=== PATIENT | male | born 1980 | race African-American/Black ===

== ENCOUNTER 2021-04-24 14:56 | Emergency (ER) | payer OTHER ==
[~2021-04-24] VITALS: Ht 193 cm; Wt 101.2 kg
[~2021-04-24 14:56] MED LIST: CLEOCIN HCL150 M1 PO; MESTINON60 MG PO; METFORMIN HCL500 M3 PO; NAPROSYN500 MG PO; NORCO 5-325 TA1 EAC1 PO; RAYOS5 MG PO
[2021-04-24 16:23] LABS: ABSOLUTE NEUTROPHILS 5.4 thou/uL (1.4-8.2); BASOPHILS 0.8 % (0.0-2.0); EOSINOPHILS 0.2 % (0.0-3.0); HEMATOCRIT 43.6 % (42.0-52.0); HEMOGLOBIN 14.1 gm/dL (14.0-18.0); LYMPHOCYTES 9.5 % (24.0-44.0); MCH 27.6 pg (26.0-34.0); MCHC 32.2 g/dL (28.0-37.0); MCV 85.6 fL (80.0-100.0); MONOCYTES 2.9 % (1.0-8.0); PLATELET COUNT 325 thou/uL (150-400); POLYS 86.6 % (36.0-66.0); RDW 15.3 % (10.5-14.5); WBC 6.2 thou/uL (4.0-11.0)
--- NOTE | 2021-04-24 16:33 | EKG ---
[place] [address] [facility] [place] [address] ELECTROCARDIOGRAM REPORT Name: CORI KOLB GET FRANCISCO Room #: REG [facility].#: [id number] Admission: 04/24/21 Attend Phys: Discharge: Date of : 76 Report #: [id number] [facility] ED Test Date: 2021-04-24 Test Time: 16:03:49 Pat Name: CORI KOLB Department: Room: Gender: M Nursery Hand: PEGGY : 1980 Requested By: Kris Calderon Order Number: [id number] MD: Dario Curtis Measurements Intervals [place] Rate: 88 P: 16 DC: 163 QRS: 74 QRSD: 156 T: -11 QT: 440 QTc: 533 Interpretive Statements Sinus rhythm Probable left atrial enlargement Left ventricular hypertrophy Anterior Q waves, possibly due to LVH Prolonged QT interval No previous ECG available for comparison Electronically Signed On 04-24-2021 16:33:13 CDT by Dario Curtis [email or web address] <ELECTRONICALLY SIGNED> By: Dario Curtis MD, [facility] 04/24/21 1633 1603 1603 Dario Curtis MD, FACC /EPI
[2021-04-24 17:22] LABS: CALCIUM 8.7 mg/dL (8.5-10.1); CREATININE 0.9 mg/dL (0.7-1.3); POTASSIUM 4.3 mmol/L (3.5-5.1)
[2021-04-24 17:29] LABS: ALBUMIN 3.3 g/dL (3.4-5.0); TOTAL BILIRUBIN 0.4 mg/dL (0.2-1.0)
[2021-04-24] MEDS ORDERED: NEURONTIN 300M300 M2 PO (17:43)
[2021-04-24] MEDS ORDERED: LYRICA150 MG PO ×2 (17:43→18:07)
[2021-04-24 18:00] VITALS: BP 158/105
== END 2021-04-24 18:00 | disposition home or self-care (01) ==
LOC: ER 14:56
PROVIDERS: Emergency Medicine
DX: M79.10 Myalgia, unspecified site (principal); Z20.822 Contact with and (suspected) exposure to COVID-19; Z79.891 Long term (current) use of opiate analgesic; Z79.84 Long term (current) use of oral hypoglycemic drugs; Z79.899 Other long term (current) drug therapy; Z88.0 Allergy status to penicillin

== ENCOUNTER 2021-07-01 13:53 | Inpatient (IN) | payer OTHER ==
[~2021-07-01] VITALS: Ht 193 cm; Wt 110.2 kg
[~2021-07-01 13:53] MED LIST changes: +LYRICA150 MG PO; +NEURONTIN 300M300 M2 PO
[2021-07-01 13:54] VITALS: BP 107/54
[2021-07-01 14:14] LABS: ABSOLUTE NEUTROPHILS 8.7 thou/uL (1.4-8.2); BASOPHILS 0.8 % (0.0-2.0); EOSINOPHILS 1.6 % (0.0-3.0); HEMATOCRIT 31.3 % (42.0-52.0); HEMOGLOBIN 10.3 gm/dL (14.0-18.0); MCH 29.3 pg (26.0-34.0); MCHC 32.9 g/dL (28.0-37.0); MONOCYTES 5.6 % (1.0-8.0); PLATELET COUNT 217 thou/uL (150-400); RBC 3.51 mil/uL (4.50-6.00); RDW 15.7 % (10.5-14.5); WBC 10.4 thou/uL (4.0-11.0)
[2021-07-01 14:26] LABS: CREATININE 2.3 mg/dL (0.7-1.3); POTASSIUM 4.9 mmol/L (3.5-5.1)
[2021-07-01 14:37] LABS: ALBUMIN 2.4 g/dL (3.4-5.0); TOTAL BILIRUBIN 0.6 mg/dL (0.2-1.0); TOTAL PROTEIN 5.8 g/dL (6.4-8.2)
[2021-07-01] MEDS ORDERED: COLCHICINE0.6 M1 PO (18:15)
[2021-07-01] MEDS ORDERED: ROXICODONE5 M2 PO (18:16)
[2021-07-01] MEDS ORDERED: IBUPROFEN 800800 M1 PO (18:17)
[2021-07-01] MEDS ORDERED: METFORMIN HCL500 M3 PO (18:17)
[2021-07-01] MEDS ORDERED: JANUVIA100 MG PO (18:17)
[2021-07-01] MEDS ORDERED: LISINOPRIL2.5 MG PO (18:18)
[2021-07-01] MEDS ORDERED: AMBIEN 5 MG TABL5 M1 PO (18:18)
[2021-07-01] MEDS ORDERED: DIGOX125 MCG PO (18:18)
[2021-07-01] MEDS ORDERED: SILDENAFIL CIT100 MG PO (18:19)
[2021-07-01] MEDS ORDERED: NEURONTIN 300M300 M2 PO ×2 (18:19→21:47)
[2021-07-01] MEDS ORDERED: PREDNISONE 20 M20 MG PO (18:19)
[2021-07-01] MEDS ORDERED: LYRICA150 MG PO (18:20)
[2021-07-01] MEDS ORDERED: CIALIS10 MG PO (18:20)
--- NOTE | 2021-07-01 18:20 | NUR ---
A #5F TRIPLE LUMEN PICC WAS PLACED PER HOSPITAL POLICY AFTER A BEDSIDE TIMEOUT WAS COMPLETED. THE LINE WAS TRIMMED TO 45CM AND ADVANCED WITHOUT DIFFICULTY. CONFIRMED AT 4CM EXTERNAL AND RELEASED FOR USE
[2021-07-01] MEDS ORDERED: INTERMEZZO3.5 MG PO (18:21)
[2021-07-01] MEDS ORDERED: JARDIANCE25 MG PO (19:15)
[2021-07-01] MEDS ORDERED: ROXICODONE5 MG PO (19:17)
[2021-07-01] MEDS ORDERED: TIZANIDINE HCL4 M2 PO (19:18)
[2021-07-01] MEDS ORDERED: TOPROL XL25 MG PO (19:23)
[2021-07-01] MEDS ORDERED: PYRIDOSTIGMINE180 MG PO (19:27)
[2021-07-01] MEDS ORDERED: ASA81BEC PO (19:27)
[2021-07-01] MEDS ORDERED: AMITRIPTYLINE H25 M3 PO (19:28)
--- NOTE | 2021-07-01 21:20 | NUR ---
I CONTACTED STEVENSON NIETO BREAD SLICER MACHINE RE: PATIENT REQUEST FOR PAIN MEDS. DR HADLEY HAD CALLED ME PREVIOUSLY TO UPDATE MED LIST - LIST IS NOW CURRENT.
[2021-07-01] MEDS ORDERED: LYRICA300 MG PO (21:57)
[2021-07-01 22:14] VITALS: BP 133/98
[2021-07-02 05:52] VITALS: BP 120/52
[2021-07-02 06:01] LABS: HEMATOCRIT 30.4 % (42.0-52.0); MCH 29.5 pg (26.0-34.0); MCHC 32.8 g/dL (28.0-37.0); MCV 90.1 fL (80.0-100.0); RBC 3.38 mil/uL (4.50-6.00); RDW 15.3 % (10.5-14.5); WBC 13.6 thou/uL (4.0-11.0)
[2021-07-02 06:11] LABS: CREATININE 1.3 mg/dL (0.7-1.3); POTASSIUM 3.6 mmol/L (3.5-5.1)
--- NOTE | 2021-07-02 09:50 | 2DMMODE ---
[facility] [place] [address] 2 D/M-MODE ECHOCARDIOGRAM Name: CORI KOLB Room #: 170-12 ADM IN M.R.#: [id number] Admission: 07/01/21 Attend Phys: Jonas Davila MD Discharge: Date of : 76 Report #: [id number] THIS REPORT FOR: cc: Dylon Zapien Brady DO Couchonnal, Luis F. MD ~ APPROVED REPORT Study performed: 07/01/2021 16:56:29 EXAM: Comprehensive 2D, Doppler, and color-flow Echocardiogram Patient Location: ER Room #: 13 Status: stat BSA: 0.87 HR: 92 bpm Rhythm: NSR Other Information Study Quality: Adequate Risk Factors: Cardiac Risk Factors: HTN Indications Dyspnea Pericardial Effusion 2D Dimensions RVDd: 40.80 mm IVSd: 13.31 (7-11mm) LVOT Diam: 24.96 (18-24mm) LVDd: 55.99 mm PWd: 10.90 (7-11mm) LVDs: 41.45 (25-40mm) Aortic Root: 38.01 mm LV Single Plane 4CH: 42.55 % Volumes Left Atrial Volume (Systole) Single Plane 4CH: 54.61 mL Single Plane 2CH: 44.68 mL LA ESV Index: 28.00 mL/m2 Aortic Valve [facility] [address] [place] [address] 2 D/M-MODE ECHOCARDIOGRAM Name: CORI KOLB GET Room #: 170-12 ADM IN M.R.#: [id number] Admission: 07/01/21 Attend Phys: Jonas Davila MD Discharge: Date of : 76 Report #: [id number] Peak Sourav.: 1.71 m/s AO Peak Gr.: 11.65 mmHg LVOT Max P.91 mmHg AO Mean Gr.: 6.34 mmHg LVOT Mean P.07 mmHg AO V2 Mean: 1.16 m/s LVOT Max V: 1.31 m/s AO V2 VTI: 28.12 cm LVOT Mean V: 0.81 m/s RACHAEL (VTI): 3.71 cm2 LVOT V1 VTI: 21.30 cm RACHAEL Vmax: 3.77 cm2 SV (LVOT): 104.19 mL Mitral Valve MV E Max Sourav.: 0.90 m/s Pulmonary Valve PV Peak Sourav.: 1.26 m/s PV Peak Gr.: 6.33 mmHg Tricuspid Valve TR Peak Sourav.: 2.89 m/s TR Peak Gr.: 33.48 mmHg Left Ventricle Left ventricle is at the upper limits of normal. Consistent with paced rhythm Mild concentric left ventricular hypertrophy. Left ventricular systolic function is mildly decreased. LVEF is 45-50%. Right Ventricle Right ventricle is at the upper limits of normal. The right ventricular systolic function is normal. Atria Left atrium is at the upper limits of normal. Right atrium size is normal. Aortic Valve The aortic valve is normal in structure. No aortic regurgitation is present. There is no aortic valvular stenosis. Mitral Valve Normal mitral valve struction Mild MR Tricuspid Valve The tricuspid valve is normal in structure. Trace tricuspid regurgitation. Estimated PAP 35-40 mmHg. Pulmonic Valve The pulmonary valve is normal in structure. There is no pulmonic [facility] [place] [address] 2 D/M-MODE ECHOCARDIOGRAM Name: CORI KOLB [facility] Room #: 170-12 ADM IN M.R.#: [id number] Admission: 07/01/21 Attend Phys: Jonas Davila MD Discharge: Date of : 76 Report #: [id number] valvular regurgitation. Great Vessels Aortic root is mildly dilated. IVC is normal in size and collapses >50% with inspiration. Pericardium There is no pericardial effusion. Critical Notification Critical Value: No <Conclusion> Left ventricle is at the upper limits of normal. Left ventricle is at the upper limits of normal. Left ventricular systolic function is mildly decreased. LVEF is 45-50%. Consistent with paced rhythm Right ventricle is at the upper limits of normal. The right ventricular systolic function is normal. The aortic valve is normal in structure. Normal mitral valve struction Mild MR The tricuspid valve is normal in structure. Trace tricuspid regurgitation. Estimated PAP 35-40 mmHg. There is no pericardial effusion. <ELECTRONICALLY SIGNED> By: Sekou Urban MD 07/02/21949 9 9 Sekou Urban MD /INF
--- NOTE | 2021-07-02 10:03 | NUR ---
DOPAMINE STARTED WITH AT 5MCG PER MINUTE
--- NOTE | 2021-07-02 10:12 | NUR ---
DOPAMINE INCREASED TO 7
--- NOTE | 2021-07-02 10:19 | NUR ---
DOPAMINE INCREASED TO 10
--- NOTE | 2021-07-02 12:04 | EKG ---
[address] [address] ELECTROCARDIOGRAM REPORT Name: CORI KOLB GET FRANCISCO Room #: 170-12 ADM IN M.R.#: [id number] Admission: 07/01/21 Attend Phys: Jonas Daivla MD Discharge: Date of : 76 Report #: [id number] [facility] ED Test Date: 2021-07-01 Test Time: 13:54:40 Pat Name: CORI KOLB Department: Room: 170 Gender: M Client Success Manager: KEITH JIM : 1980 Requested By: Yayo Jenkins Order Number: [id number] MD: Sekou Urban Measurements Intervals [place] Rate: 69 P: 6 FL: 161 QRS: 69 QRSD: 148 T: 27 QT: 427 QTc: 458 Interpretive Statements Sinus rhythm Probable left atrial enlargement Left bundle branch block Compared to ECG 04/24/2021 16:03:49 Left bundle-branch block now present Left ventricular hypertrophy no longer present Q waves no longer present Prolonged QT interval no longer present Electronically Signed On 07-02-2021 12:03:56 BONDING AGENT by Sekou Urban [email or web address] <ELECTRONICALLY SIGNED> By: Sekou Urban MD 07/02/21 1203 1354 1354 Sekou Urban MD /EPI
--- NOTE | 2021-07-02 12:04 | NUR ---
DOPAMINE TITRATED TO A STOP
[2021-07-02 13:20] VITALS: BP 112/57
[2021-07-02 17:12] VITALS: BP 158/96
--- NOTE | 2021-07-02 18:27 | NUR ---
ADMISSION NOTE: 1500 PT ADMITTED TO ROOM 357. ALERT AND ORIENTED X4. VENDING ATTENDANT PLACE, SINUS TACHYCARDIA. HR IN 140'S WHEN UP. PT EDUCATED TO CALL WHEN HE HAS TO GO TO THE BATHROOM. STATED HE "WILL TRY". CALL LIGHT AND TABLE WITHIN REACH. STATED HE IS NOT FALL RISK AND WILL PREFER TO WEAR THE BLUE SOCK INSTEAD. ASSESSMENT AND ADMISSION COMPLTED. PT FRUSTRATED WITH HOW HIS HOME MEDS HAVE NOT BEEN ORDERED LIKE HE TAKE AT HOME. DR. HADLEY MADE AWARE AND WILL UPDATED EMAR. SKIN INTACT. COMPLAINS OF LOWER EXTREMITY PAIN AND NECK PAIN. PAIN MED GIVEN PER ORDER. DENIES ANY NEEDS MASHA, VISITING. WILL CONTINUE TO MONITOR.
[2021-07-02 20:40] VITALS: BP 124/74
[2021-07-02 23:18] VITALS: BP 134/77
[2021-07-03 03:44] VITALS: BP 97/58
--- NOTE | 2021-07-03 05:39 | NUR ---
Pt. requested pain med for his pain on his neck,shoulders and stated all over which he rated as 10/10. Oxycodone x1 given then he stated he takes two at HS. GROUND MIXER notified and order received for the other dose of oxycodone. BP is a lot better though HR is in ST with HR in the 130's-140's especially with activities. Elevated temp of 101.6 , GROUND MIXER notified. Tylenol given and he has been afebrile since. Once pt. got situated HR down in the 80's to 90's. Sleep med also given per his request and he slept well during the night. In between sleeping and upon waking up he requested food to eat. O2 sat 89% around 2330 ,O2 at 2L/NC applied then O2 sat up to 96-97%.Ambulated to bathroom to void. Encouraged pt. to void using urinal for accurate I/O and verbalized understanding.
[2021-07-03 07:08] VITALS: BP 139/87
--- NOTE | 2021-07-03 07:23 | HC ---
[facility] [place] [address] CONSULTATION Name: CORI KOLB Room #: 357-P ADM IN M.R.#: [id number] Admission: 07/01/21 Attend Phys: Jonas Davila MD Discharge: Date of : 76 Report #: [id number] THIS REPORT FOR: cc: Dylon Zapien Brady DO Barry,Cas Lowry MD ~ DATE OF SERVICE: 07/02/2021 INFECTIOUS DISEASE CONSULTATION ATTENDING PHYSICIAN: Dr. Davila. REASON FOR EVALUATION: Septic shock, complicated by neurological deficits. HISTORY OF PRESENT ILLNESS: Chart reviewed. The patient examined. This is a 41-year-old gentleman with myasthenia gravis, who apparently had an extended illness with COVID dating first part 2020. He spent several weeks in the hospital including intensive care unit under intubation. He had a prolonged recovery. He noted he was feeling improved, was watching a movie with his spouse, he had a sensation, he was paralyzed where he could not move his upper and then lower extremities, called the EMS, found to be hypotensive with systolic blood pressure in the 50s. He was given some fluid resuscitation, which improved his overall status. Evaluation was undertaken and was found to have several concerning results. Chest x-ray showed cardiomegaly, asymmetrical interstitial infiltrates. There was question of some pulmonary edema. Lactic acid was 3.3. Procalcitonin elevated at 41.98. Coronavirus testing was negative. Blood cultures collected at time of admission are sterile thus far. He is generally improved since his presentation, he is still tachycardic. At this point, he is not requiring pressor support. He has been afebrile. He is requiring supplemental oxygen 2 L per nasal cannula. ALLERGIES: LISTED TO PENICILLINS. CURRENT MEDICATIONS: Include ceftriaxone, prednisone, gabapentin, aspirin, digoxin, oxycodone, zolpidem, tizanidine, pregabalin, pyridostigmine, sliding scale insulin, heparin, p.r.n. analgesics, antiemetics, azithromycin, amitriptyline. PAST MEDICAL HISTORY: Includes myasthenia gravis, does have a cardiomyopathy with history of congestive heart failure, severe COVID pneumonitis. Apparently, has diabetes mellitus as well. SOCIAL HISTORY: Nonsmoker, no ethanol, no illicit drug use. FAMILY HISTORY: Noncontributory. [address] [address] CONSULTATION Name: CORI KOLB [facility] Room #: 357-P [facility] IN .R.#: [id number] Admission: 07/01/21 Attend Phys: Jonsa Davila MD Discharge: Date of : 76 Report #: [id number] REVIEW OF SYSTEMS: Otherwise, unremarkable. PHYSICAL EXAMINATION: GENERAL: He is alert, cooperative, is mild to moderate distress, he appears somewhat undernourished. He is generally lucid. He is moving all his extremities. VITAL SIGNS: Afebrile, pulse 120, respirations 22, blood pressure 129/56. SKIN: Warm, dry, no rashes. HEENT: Normocephalic. Extraocular muscles intact. Nasal cannula in place. NECK: Supple. LUNGS: Diminished. There are few scattered crackles bilaterally. HEART: Tachycardic, regular, do not appreciate a murmur. ABDOMEN: Mildly distended, somewhat firm. No peritoneal signs. Nontender. EXTREMITIES: No cyanosis. GENITOURINARY AND RECTAL: Deferred. LABORATORY DATA: Recent CBC: White count 15.6, H and H 10.0 and 30.4, platelets of 210. Electrolytes: Sodium 143, potassium 3.6, chloride 109, bicarbonate is 21, anion gap of 13, BUN and creatinine 28 and 1.3, down from 2.3 on admission. Procalcitonin elevated at 41.98. Lactic acid on repeat was 1.1. CT of the chest showed ground glass interspace opacities, cardiomegaly. ASSESSMENT AND PLAN: Septic shock. The patient has known history of severe COVID infection several months ago. It is difficult to ascertain whether the x-ray findings are something that are perhaps new. Denies any significant GI related complaints. We will await blood culture results. I think broadening his antibiotic coverage is reasonable. Given the elevated procalcitonin, certainly it would be concerning for a bacterial etiology, we will pursue additional diagnostic tests as clinical course dictates including possibly imaging of his abdomen and pelvis. At this point, he is quite tenuous, although he is not overtly toxic. <ELECTRONICALLY SIGNED> By: Cas Biggs MD 07/03/21 0723 [id number] [id number] Cas Biggs MD /nt
[2021-07-03 08:44] VITALS: BP 115/71
--- NOTE | 2021-07-03 14:20 | NUR ---
INITIAL ASSESSMENT: TARA reviewed chart and spoke with nursing and attending physician. Pt was admitted from home due to hypotension. Pt with hx of COVID in July of 2020. Pt also with hx of CHF/DM/myasthenia gravis. PT/OT evals ordered. Pt is currently on IV abx and 3L of O2. ID and cardiology consulted. TARA met with pt at bedside. Introduced role of SW. Pt is alert/orientated x 4. Pt wearing a c-collar due to neck pain. Pt reports he lives at home with his and family. Prior to admission, pt was independent with ADLs. Pt states he has a cane to use if needed. No hx of home O2 use. Pt reports having about 20 stairs inside that he needs to navigate. No hx of HH services or post-acute placement. Pt's PCP is Dr. Dylon Zapien at [facility]. TARA discussed case with 5N rehab director occupational therapist. Pt may benefit from a 5N consult pending therapy evals. TARA is following to assist as needed with discharge planning.
[2021-07-03 17:43] LABS: ABSOLUTE NEUTROPHILS 8.1 thou/uL (1.4-8.2); BASOPHILS 0.3 % (0.0-2.0); HEMATOCRIT 32.2 % (42.0-52.0); HEMOGLOBIN 10.8 gm/dL (14.0-18.0); LYMPHOCYTES 13.8 % (24.0-44.0); MCH 29.9 pg (26.0-34.0); MCHC 33.5 g/dL (28.0-37.0); MCV 89.2 fL (80.0-100.0); MONOCYTES 10.1 % (1.0-8.0); PLATELET COUNT 233 thou/uL (150-400); POLYS 73.8 % (36.0-66.0); RBC 3.61 mil/uL (4.50-6.00); RDW 15.5 % (10.5-14.5)
[2021-07-03 17:52] LABS: CALCIUM 8.1 mg/dL (8.5-10.1); CREATININE 1.5 mg/dL (0.7-1.3)
[2021-07-03 20:26] VITALS: BP 146/96
[2021-07-04 04:13] VITALS: BP 180/115
[2021-07-04 04:13] LABS: CALCIUM 7.5 mg/dL (8.5-10.1); CREATININE 1.3 mg/dL (0.7-1.3); POTASSIUM 3.9 mmol/L (3.5-5.1)
[2021-07-04 04:45] LABS: HEMATOCRIT 26.5 % (42.0-52.0); MCH 29.4 pg (26.0-34.0); MCHC 32.7 g/dL (28.0-37.0); MCV 89.9 fL (80.0-100.0); RBC 2.95 mil/uL (4.50-6.00); RDW 15.5 % (10.5-14.5); WBC 8.9 thou/uL (4.0-11.0)
[2021-07-04 04:59] LABS: HEMOGLOBIN 8.7 gm/dL (14.0-18.0)
--- NOTE | 2021-07-04 06:22 | NUR ---
PT ALERT & ORIENTED X 4. CURRENTLY ON 3L O2 NC. PT WAS FEBRILE AT BEGININNING OF SHIFT. ADMINISTERED TYLENOL PRN AND PT HAS BEEN AFEBRILE SINCE. PT C/O OF GENERALIZED PAIN AND REQUESTED A SECOND OXYCODONE TABLET AT BEDTIME. BOX SEALING MACHINE CATCHER NOTIFIED. RECEIVED ORDERS FOR 1 TIME DOSE OF OXYCODODNE 5MG IR IN ADDITION TO OXYCODONE 5MG IR Q4H PRN. PT UP AD DARCI. PT SR/ST ON TELE. WILL CONTINUE TO MONITOR.
[2021-07-04 07:18] VITALS: BP 159/108
--- NOTE | 2021-07-04 12:09 | NUR ---
ORDERS RECEIVED FOR PT EVAL AND TREAT. Pt SITTING AT EOB. ON 1L O2 W/ SATS 91% AND HR 80s. Pt POLITELY DECLINING NEED FOR PT AT THIS TIME. Pt REPORTING HE JUST NEEDS TO GET BACK HOME ON HIS REGULAR MEDS. HAS BEEN FIGHTING HIS NEUROPATHY AND IN CONSTANT PAIN D/T IT. Pt HAS BEEN UP AD DARCI AT THIS TIME. ACUTE PT TO SIGN OFF. PLEASE CONSIDER RE-CONSULTING PT IF Pt'S CONDITION CHANGES.
--- NOTE | 2021-07-04 15:57 | NUR ---
SW reviewed chart and spoke with nursing and attending physician. Pt is progressing towards goals for discharge. Pt is on room air. Pt is currently on IV abx. Plan to change to PO for discharge. Pt declined physical therapy eval. Plan is for pt to discharge home when medically stable. TARA is following to assist as needed with discharge planning.
[2021-07-04 16:42] VITALS: BP 158/123
--- NOTE | 2021-07-04 17:12 | NUR ---
Pt A & O x4. Pt is on 1 L of 02 per nasal cannula. Pt VS stable. Pt is SR/ST with BBB on the tele. Pt is independent with cares and ADLs and is up ad oliva. Pt received medications as ordered and also received PRN medications as requested by pt. Pt is able to make needs known
[2021-07-04 19:28] VITALS: BP 144/102
[2021-07-04 23:48] VITALS: BP 168/109
--- NOTE | 2021-07-05 05:18 | NUR ---
PT ALERT & ORIENTED X 4. PT HAD MULTIPLE C/O OF PAIN OVERNIGHT. ADMINISTERED PAIN MEDS PRN. CURRENTLY ON RA. PT IS UP AD DARCI AND HAS A STEADY GAIT. PT'S BP IS ELEVATED. NOTIFIED LIGHTNING ROD INSTALLER AND RECEIVED ORDERS FOR LISINOPRIL. WILL CONTINUE TO MONITOR.
[2021-07-05 05:45] VITALS: BP 173/113
[2021-07-05 09:01] LABS: CALCIUM 8.1 mg/dL (8.5-10.1); CREATININE 1.2 mg/dL (0.7-1.3); POTASSIUM 3.7 mmol/L (3.5-5.1)
[2021-07-05 09:18] VITALS: BP 157/102
[2021-07-05 12:58] VITALS: BP 150/85
[2021-07-05 13:08] LABS: HIV ANTIBODY Non Reactive (Non Reactive)
[2021-07-05 16:00] VITALS: BP 123/86
--- NOTE | 2021-07-05 19:17 | NUR ---
PT ALERT AND ORIENTED X 4. PT COMPLAINS OF PAIN, WITH LITTLE TO NO RELIEF FROM MEDICATION. PT WEAR NECK COLLAR THROUGHOUT SHIFT TO HELP RELIEVE SOME PAIN. PT DENIES NEEDS AT THE MOMENT, WILL CONTINUE TO MONITOR.
[2021-07-05 19:48] VITALS: BP 120/76
[2021-07-05 21:13] LABS: HEMATOCRIT 24.7 % (42.0-52.0); HEMOGLOBIN 8.1 gm/dL (14.0-18.0); MCHC 32.7 g/dL (28.0-37.0); MCV 88.5 fL (80.0-100.0); RBC 2.79 mil/uL (4.50-6.00); RDW 14.8 % (10.5-14.5); WBC 5.3 thou/uL (4.0-11.0)
[2021-07-06] VITALS (8 sets, daily range): BP systolic 80–155; BP diastolic 47–102
--- NOTE | 2021-07-06 04:06 | NUR ---
PT IS ALERT & ORIENTED X 4. PT HAD C/O OF PAIN. ADMINISTERED PAIN MEDS PRN. PT IS ABLE TO MAKE NEEDS KNOWN AND SWITCHES FROM RA TO 2L O2 NC PRN. RIGHT UPPER ARM PICC WAS ASPIRATED FOR BLOOD AT BEGININNING OF SHIFT AND THIS NURSE WAS UNABLE TO ASPIRATE. NOTIFIED SOFTWARE APPLICATIONS DESIGNER AND RECEIVED ORDERS FOR CATHFLO. ADMINISTRED AND WAS ABLE TO GET BLOOD RETURN. VSS AFEBRILE. WILL CONTINUE TO MONITOR.
[2021-07-06 10:51] LABS: HEMATOCRIT 26.8 % (42.0-52.0); HEMOGLOBIN 8.9 gm/dL (14.0-18.0); MCH 29.4 pg (26.0-34.0); MCHC 33.2 g/dL (28.0-37.0); MCV 88.7 fL (80.0-100.0); RBC 3.02 mil/uL (4.50-6.00); RDW 14.8 % (10.5-14.5); WBC 6.7 thou/uL (4.0-11.0)
[2021-07-06 11:06] LABS: CALCIUM 7.3 mg/dL (8.5-10.1); CREATININE 1.3 mg/dL (0.7-1.3)
[2021-07-06 11:20] LABS: POTASSIUM 2.9 mmol/L (3.5-5.1)
--- NOTE | 2021-07-06 17:52 | NUR ---
PT ALERT AND ORIENTED X 4. PT COMPLAINS OF PAIN 10/10. PT HAD CRITICAL POTASSIUM AT 2.9, NOTIFIED. PT HAD BP GO LOW 78/43 TODAY, HOSPITALIST REQUESTED I SPEAK WITH CARDIOLOGY. HYDROGENATION STILL OPERATOR ORDERED BOLUS OF NS ONE TIME DOSE, ASK WE HOLD BP MEDICATIONS UNTIL TOMORROW MORNING. IF BP IS HIGH IN THE AM, CALL HYDROGENATION STILL OPERATOR BEFORE GIVING BP MEDS. PT IS ON RA - 2L NC NEEDED. WILL CONTINUE TO MONITOR.
[2021-07-07 03:45] VITALS: BP 119/9
--- NOTE | 2021-07-07 05:29 | NUR ---
PT MAKING SLOW PROGRESS TOWARDS GOALS. PT REPORTING FEELING OCCASIONAL SOA BUT HAS NOT CALLED STAFF WITH ANY REPORTS ABOUT THIS. ON ROOM AIR THROUGHOUT THE NIGHT. SEE VS. LUNGS CLEAR, DIMINISHED. OCCASIONAL CONGESTED BUT NONPRODUCTIVE COUGH.
[2021-07-07 07:03] VITALS: BP 137/89
--- NOTE | 2021-07-07 08:47 | NUR ---
Assess for length of stay. Admit with hypotension. Hx COVID, DM, myastenia gravis. Wts are stable and pt tolerating meals. BG 165-322 and on regular diet. Will add carb control for BG improvement, and pt on diabetic medications. Presents low nutrition risk
[2021-07-07 09:21] LABS: HEMATOCRIT 34.3 % (42.0-52.0); MCH 28.4 pg (26.0-34.0); MCHC 32.2 g/dL (28.0-37.0); MCV 88.4 fL (80.0-100.0); RBC 3.88 mil/uL (4.50-6.00); RDW 15.5 % (10.5-14.5); WBC 8.7 thou/uL (4.0-11.0)
[2021-07-07 09:31] LABS: CALCIUM 8.8 mg/dL (8.5-10.1); CREATININE 1.2 mg/dL (0.7-1.3); MAGNESIUM 1.2 mg/dL (1.8-2.4); POTASSIUM 3.6 mmol/L (3.5-5.1)
[2021-07-07 11:14] VITALS: BP 153/98
--- NOTE | 2021-07-07 12:26 | NUR ---
CASE DISCUSSED WITH CARE TEAM. THERAPY HAS DISCHARGED PT. POSSIBLE DISCHARGE HOME THIS WEEKEND. NO CM INTERVENTIONS INDICATED.
[2021-07-07 15:20] VITALS: BP 131/55
[2021-07-07 19:04] VITALS: BP 153/101
[2021-07-07 23:49] VITALS: BP 149/89
[2021-07-08 05:14] LABS: CALCIUM 8.4 mg/dL (8.5-10.1); CREATININE 1.1 mg/dL (0.7-1.3); POTASSIUM 4.1 mmol/L (3.5-5.1)
[2021-07-08 05:32] VITALS: BP 151/102
[2021-07-08 07:10] VITALS: BP 158/110
--- NOTE | 2021-07-08 08:58 | NUR ---
PT MAKING POOR PROGRESS TOWARDS GOALS. REPORTING GENERALIZED PAIN 8-9 THROUGHOUT THE NIGHT. OXYCODONE IR GIVEN PER ORDERS WITH ONLY MILD RELIEF. CONTINUE TO MONITOR.
[2021-07-08 11:19] VITALS: BP 139/86
[2021-07-08 15:07] VITALS: BP 134/86
[2021-07-08 18:45] VITALS: BP 142/84
--- NOTE | 2021-07-08 18:48 | NUR ---
PT ALERT AND ORIENTED X 4. PT COMPLAINS OF PAIN 10/10 THROUGHOUT SHIFT. PT DENIES OTHER NEEDS, WILL CONTINUE TO MONITOR.
[2021-07-09 04:42] VITALS: BP 140/90
[2021-07-09 07:06] VITALS: BP 130/92
[2021-07-09 11:15] VITALS: BP 141/79
[2021-07-09 12:44] LABS: CLARITY CLEAR; COLOR YELLOW; SOURCE RIGHT KNEE; TOTAL VOLUME 40 mL
[2021-07-09 13:21] LABS: BF NUCLEATED CELLS 52 /mm3; BF RBC 65 /mm3
[2021-07-09 15:41] VITALS: BP 121/77
[2021-07-09 17:36] LABS: BF MACROPHAGE 69 %; BF NEUTROPHILS 5 %
--- NOTE | 2021-07-09 17:53 | NUR ---
PATIENT IS ALERT AND ORIENTED X4 THIS SHIFT. PATIENT IS ON ROOM AIR AND HIS LUNGS ARE CLEAR. PATIENT IS CC/ TELE AND HAS BEEN RUNNING SINUS RHYTHM THIS SHIFT. PATIENTS LAST BM WAS THIS MORNING, 07/09/21. PATIENT GETS UP ADLIB TO USE THE TOILET. PATIENT HAS BEEN CONTINENT OF BOTH BOWEL AND BLADDER THIS SHIFT. PATIENT HAS CONSISTENTLY REPORTED 9/10 PAIN AND HAS BEEN MEDICATED PER ORDERS FOR HIS PAIN. PATIENT REPORTS PARTIAL PAIN RELIEF AT A 2/3 WHICH HE STATES IS MANAGEABLE. PATIENT HAS AN RIGHT UPPER ARM TRIPLE LUMEN. ALL THREE LUMENS ARE FLUSHED AND ARE PATENT. PATIENT WILL CONTINUE TO BE MONITORED.
[2021-07-09 18:45] VITALS: BP 146/93
[2021-07-10 03:51] VITALS: BP 134/80
[2021-07-10 06:05] VITALS: BP 148/101
--- NOTE | 2021-07-10 08:06 | NUR ---
PT PROGRESSING TOWARDS D/C GOALS. VSS AFEBRILE. BP MODERATELY ELEVATED THIS AM C/O PAIN GENERALIZED. MEDICATED WITH 2 OXYCODONE. RIGHT KNEE BANDAIDE DRESSING REMAINS CLEAN DRY AND INTACT. RIGHT KNEE STILL HAS 2-3 + EDEMA NOTED. NO CHANGES IN ASSESSMENT.
--- NOTE | 2021-07-10 13:25 | NUR ---
UP AD DARCI TO THE BATHROOM, HAD A BM TODAY. PT RIGHT LOWER EXTREMITY SWOLLEN, PT EDUCATED TO KEEP IT ELEVATED. WAITING ON RESULTS FROM FLUID ASPIRATED FROM RIGHT KNEE JOINT. PAIN MED GIVEN FOR GENERALIZED PAIN. DENIES ANY NEEDS AT MOMENT, ANTICIPATING FOR D/C SOON.
--- NOTE | 2021-07-10 14:05 | NUR ---
SW reviewed chart and spoke with nursing and attending physician. Pt is progressing towards goals for discharge. Discharge home is anticipated for tomorrow. Pt had aspiration of fluid behind right knee. Pt is on IV abx. Plan is for pt to discharge home when medically stable. TARA is following to assist as needed with discharge planning.
[2021-07-10 16:18] VITALS: BP 135/84
--- NOTE | 2021-07-11 02:33 | NUR ---
PT ALERT AND ORIENTED X4 VSS AFEBRILE. C/O GENERALIZED PAIN. MEDICATED WITH OXYCODONE AND MUSCLE RELAXER FOR PAIN 05/07. HE ATE A LATE DINNER AND IS NOW SLEEPING WITHOUT S/S DISTRESS. RLE STILL EDEMATOUS. ENC ELEVATION ON P[place]A.
[2021-07-11 03:31] VITALS: BP 126/80
[2021-07-11 07:04] VITALS: BP 147/90
--- NOTE | 2021-07-11 08:14 | NUR ---
MEDICATED FOR GENERALIZED PAIN X2 TONIGHT. RLE CONTINUES TO BE SWOLLEN . NO DRAINAGE NOTED. BUGGY RUNNER COUGH NOTED. LUNG SOUNDS SLIGHTLY DIMINISHED BUT UNLABORED ON RA. NO CHANGESIN ASSESSMENT. PT HAPPT TO BE GOING HOME POSSIBLY TODAY.
[2021-07-11 12:09] LABS: SOURCE SYNOVIAL
[2021-07-11] MEDS ORDERED: VENTOLIN HFA 1818 GM INH (12:26)
[2021-07-11] MEDS ORDERED: MINOCYCLINE 5050 M1 PO (12:26)
[2021-07-11] MEDS ORDERED: METOPROLOL SUCC50 MG PO (12:26)
[2021-07-11] MEDS ORDERED: MUCINEX600 MG PO (12:26)
[2021-07-11] MEDS ORDERED: TESSALON PERLE100 MG PO (12:26)
[2021-07-11] MEDS ORDERED: FELODIPINE ER10 MG PO (12:26)
--- NOTE | 2021-07-11 13:53 | NUR ---
DISCHARGE NOTE: SW reviewed chart and spoke with nursing and attending physician. Pt is medically stable to discharge home today. No discharge needs identified at this time. Pt's family to provide transportation home. SW is available to assist should needs arise.
[2021-07-11 15:08] VITALS: BP 123/63
[2021-07-11 18:14] VITALS: BP 123/63
--- NOTE | 2021-07-11 18:31 | NUR ---
DISHARGE NOTE; WENT THROUGH DISCHARGE INSTRUCTIONS WITH PT. AWARE OF APPOINTMENTS. TELE AND PICC LINE DISCONTINUED. ALL BELONGINGS WITH WITH PT. PT IS ABOUT TO BE TAKEN DOWN VIAI WHEEL CHAIR
== END 2021-07-11 18:57 | disposition home or self-care (01) | DRG 871 ==
LOC: ER 13:53 → EROBS 16:40 → 3W 16:40
PROVIDERS: Emergency Medicine; Internal Medicine; Nurse Practitioner Adult Health; Nurse Practitioner Family; Specialist; ADMIT Hospitalist; ATTEND Hospitalist
PROC: 05HY33Z Insertion of Infusion Device into Upper Vein, Percutaneous Approach (ICD-10-PCS; principal; 2021-07-01)
PROC: 0S9C3ZZ Drainage of Right Knee Joint, Percutaneous Approach (ICD-10-PCS; 2021-07-09)
DX: A41.9 Sepsis, unspecified organism (principal); J18.9 Pneumonia, unspecified organism; R65.21 Severe sepsis with septic shock; I42.9 Cardiomyopathy, unspecified; I50.20 Unspecified systolic (congestive) heart failure; N17.9 Acute kidney failure, unspecified; I13.0 Hypertensive heart and chronic kidney disease with heart failure and stage 1 through stage 4 chronic kidney disease, or unspecified chronic kidney disease; Z20.822 Contact with and (suspected) exposure to COVID-19; I95.9 Hypotension, unspecified; G70.00 Myasthenia gravis without (acute) exacerbation; E11.40 Type 2 diabetes mellitus with diabetic neuropathy, unspecified; D64.9 Anemia, unspecified; N18.9 Chronic kidney disease, unspecified; E87.6 Hypokalemia; E11.22 Type 2 diabetes mellitus with diabetic chronic kidney disease; E83.42 Hypomagnesemia; M25.461 Effusion, right knee; E86.9 Volume depletion, unspecified; Z88.0 Allergy status to penicillin; Z79.82 Long term (current) use of aspirin; Z79.899 Other long term (current) drug therapy; Z86.16 Personal history of COVID-19
CPT/HCPCS: 10879; 27000